=== PATIENT | male | born 1945 | race Caucasian/White ===

== ENCOUNTER → 2016-08-11 | Outpatient (CLI) | payer MEDICARE, OTHER ==
--- NOTE | 2016-08-11 08:23 | XR ---
EXAMINATION TYPE: XR orbit detect foreign body DATE OF EXAM: 08/11/2016 8:07 AM COMPARISON: NONE HISTORY: Foreign body right eye, pre-MRI study TECHNIQUE: Chung and Jt frontal view as well as true lateral view of both orbits is obtained. FINDINGS: No metallic intraorbital foreign body is seen to prevent MRI study. IMPRESSION: As above.
--- NOTE | 2016-08-11 09:05 | US ---
EXAMINATION TYPE: US carotid duplex BILAT DATE OF EXAM: 08/11/2016 8:41 AM COMPARISON: NONE CLINICAL HISTORY: H49.21 Palsy. Visual disturbance EXAM MEASUREMENTS: RIGHT: Peak Systolic Velocity (PSV) cm/sec ----- Right CCA: 65.2 ----- Right ICA: 72.2 ----- Right ECA: 87.0 ICA/CCA ratio: 1.1 RIGHT: End Diastole cm/sec ----- Right CCA: 17.2 ----- Right ICA: 19.3 ----- Right ECA: 13.1 LEFT: Peak Systolic Velocity (PSV) cm/sec ----- Left CCA: 92.7 ----- Left ICA: 64.9 ----- Left ECA: 81.0 ICA/CCA ratio: 0.7 LEFT: End Diastole cm/sec ----- Left CCA: 22.8 ----- Left ICA: 64.9 ----- Left ECA: 81.0 VERTEBRALS (direction of flow): Right Vertebral: Antegrade Left Vertebral: Antegrade TECHNOLOGIST IMPRESSION: Minimal plaque with no significant velocity elevations Grayscale images show no significant focal plaque at carotid bulb level bilaterally. Velocity measure ments and ratios in visualized portion of both internal carotid arteries is within normal limits. IMPRESSION: No hemodynamically significant stenosis in either internal carotid artery. Criteria for Assigning % of Stenosis / Diameter reduction (Estimation based on the indirect measurements of the internal carotid artery velocities (ICA PSV). 1. Normal (no stenosis)=ICA PSV < 125 cm/s: ratio < 2.0: ICA EDV<40 cm/s. 2. Less than 50% stenosis=ICA PSV < 125 cm/s: ratio < 2.0: ICA EDV<40 cm/s. 3. 50 to 69% stenosis=ICA PSV of 125 to 230 cm/s: ration 2.0 ? 4.0: ICA EDV 40-100 cm/s. 4. Greater than 70% stenosis to near occlusion= ICA PSV > 230 cm/s: ratio > 4.0: ICA EDV > 100 cm/s. 5. Near occlusion= ICA PSV velocities may be low or undetectable: variable ratio and ICA EDV. 6. Total occlusion=unable to detect flow.
--- NOTE | 2016-08-11 11:10 | MR ---
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 There is no hemorrhage or hydrocephalus. Cortical atrophy is presen t. Cerebellopontine angles, corpus callosum, pituitary, cervical medullary junction are normal. The o rbits show a symmetric appearance, globes appear symmetric. There are normal vascular flow voids. Sca ttered hyperintensities are present in the periventricular white matter on inversion recovery and T2- weighted sequences, approximately 20-30 lesions are present. IMPRESSION: Nonspecific white matter demyelination, cortical atrophy may be age-related.
--- NOTE | 2016-08-11 11:20 | MR ---
MR orbits with and without contrast HISTORY: Falls the right 6th cranial nerve Multiplanar multisequence and postcontrast images obtained through the orbits following 18 cc MultiHa nce IV Correlation to MR brain same date The extraocular muscles show a symmetric appearance. Globes are also symmetric and are showing asymme tric gaze. No abnormal enhancement, no evident mass. Internal carotid arteries are patent. Pituitary shows an unremarkable appearance. IMPRESSION: Normal pre and postcontrast orbits.
== END | disposition home or self-care (01) ==
LOC: RADUSMAIN 07:34
PROVIDERS: ATTEND Psychiatry & Neurology Neurology
DX: Z01.818 Encounter for other preprocedural examination (principal); H49.21 Sixth [abducent] nerve palsy, right eye; R90.82 White matter disease, unspecified
CPT/HCPCS: 70030; 93880; 70543; 70551; A9577

== ENCOUNTER → 2016-11-16 | Outpatient (CLI) | payer MEDICARE, OTHER ==
--- NOTE | 2016-11-16 12:25 | EST ---
DATE OF SERVICE: 11/16/2016 AGE: 71Y SEX: M HT: 70" WT: 195 lbs. Protocol Russell: X Other: Stress Stage: 3 Dur. of Exercise: 10:00 *Heart Rate Blood Pressure *Rest: 74 Rest: 116/65 * *Max. Achieved: 145 Maximum BP: 165/76 85% PMHR: 125 100% PMHR: 157 *METS: 11.7 INDICATIONS: Chest pain. MEDICATIONS: Aspirin, metformin, atorvastatin, Prevacid, Synthroid, Diovan, Protegra. Patient was exercised for a total period of 10 minutes. Peak heart rate of 145 was achieved. Maximum blood pressure 165/76 mmHg was noted. Exercised for a total period of 10 minutes. No complaint of any chest pain during the test. Resting EKG shows normal sinus rhythm with normal MN interval and QRS duration and normal ST-T waves. No ST segment depression suggestive of ischemia was noted. The patient did not complain of any anginal pain during the test. FINAL IMPRESSION: 1. This exercise test is not suggestive of ischemia. Patient's exercise tolerance is normal. 2. No dysrhythmias are noted.
== END | disposition home or self-care (01) ==
LOC: RADNMMAIN 09:19
PROVIDERS: ATTEND Family Medicine
DX: R07.9 Chest pain, unspecified (principal)
CPT/HCPCS: 93017

== ENCOUNTER 2017-07-02 22:55 | Emergency (ER) | payer MEDICARE, OTHER ==
[2017-07-02 23:08] VITALS: TEMP 97
[2017-07-02] MEDS ORDERED: ACETAMINOPHEN TAB 500 MG TAB PO STA (23:28)
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
--- NOTE | 2017-07-02 23:57 | CT ---
EXAM: CT Head Without Intravenous Contrast CLINICAL HISTORY: Reason: Pain TECHNIQUE: Axial computed tomography images of the head/brain without intravenous contrast. CTDI is 57 mGy and DLP is 978 mGy-cm. This CT exam was performed using one or more of the following dose reduction techniques: automated exposure control, adjustment of the mA and/or kV according to patient size, and/or use of iterative reconstruction technique. COMPARISON: No relevant prior studies available. FINDINGS: Brain: No hemorrhage, large hypodensity, or mass effect. Mild periventricular hypodensities likely reflective of chronic microvascular ischemic changes. Ventricles: No hydrocephalus. Bones/joints: Unremarkable. Soft tissues: Unremarkable. Sinuses: Unremarkable. Mastoid air cells: Clear. IMPRESSION: No acute hemorrhage, hydrocephalus, or mass effect.
[2017-07-03 00:28] VITALS: BP 136/71; PULSE 74; RESP 16
== END 2017-07-03 00:28 | disposition home or self-care (01) ==
LOC: EC 22:55
DX: S00.03XA Contusion of scalp, initial encounter (principal); E11.9 Type 2 diabetes mellitus without complications; I10 Essential (primary) hypertension; Z88.5 Allergy status to narcotic agent; Z91.040 Latex allergy status; Z91.048 Other nonmedicinal substance allergy status; Z79.84 Long term (current) use of oral hypoglycemic drugs; Z79.82 Long term (current) use of aspirin; Z79.899 Other long term (current) drug therapy; W22.8XXA Striking against or struck by other objects, initial encounter; Y92.59 Other trade areas as the place of occurrence of the external cause
CPT/HCPCS: 70450; 99283

== ENCOUNTER → 2018-06-22 | Outpatient (CLI) | payer MEDICARE, OTHER ==
--- NOTE | 2018-06-22 13:46 | MR ---
EXAMINATION TYPE: MR shoulder RT wo con DATE OF EXAM: 06/22/2018 11:43 AM COMPARISON: NONE HISTORY: Pain in right shoulder TECHNIQUE: Multiplanar multispin echo imaging of the right shoulder was performed. FINDINGS: Rotator cuff : There is thinning and heterogeneity of the supraspinatus tendon with the partial intra substance and undersurface tears noted at the critical zone and distally. No evidence for full-thickn ess tear at this time. The remaining constituents of the rotator cuff are intact. Bursa: No bursal effusion or thickening is seen. Musculature: There is no muscular tear, contusion, or atrophy. Acromioclavicular joint : Moderate AC joint arthropathy. Lateral downsloping of the acromion with sub acromial spurring resulting in impingement. Osseous structures : There are no fractures or regions of abnormal bone marrow signal intensity. Long biceps tendon : The biceps tendon is normally situated within the bicipital groove. No complete or partial biceps tendon tear is present. Glenohumeral Joint fluid : There is no glenohumeral joint effusion. Cartilage and Bone : No focal hyaline cartilage defects are noted. No Hill-Sachs, reverse Hill-Sachs, or bony Bankart lesions are seen. Labrum : There are no SLAP or soft tissue Bankart lesions. No paralabral cysts are seen. OTHER FINDINGS : none IMPRESSION: 1. Chronic tendinopathy supraspinatus tendon with the intrasubstance and undersurface partial tears. No evidence for full-thickness tear. 2. Lateral downsloping of the acromion with subacromial spurring resulting in moderate impingement.
== END | disposition home or self-care (01) ==
LOC: RADMRIMAIN 10:52
PROVIDERS: ATTEND Orthopaedic Surgery Sports Medicine
DX: M75.101 Unspecified rotator cuff tear or rupture of right shoulder, not specified as traumatic (principal); M67.813 Other specified disorders of tendon, right shoulder

== ENCOUNTER → 2021-06-30 | Outpatient (CLI) | payer MEDICARE, OTHER ==
[~2021-06-30] MED LIST: BAMLANIVIMAB (EUA) 700 MG, ETESEVIMAB (EUA) 1,400 MG in SODIUM CHLORIDE 0.9% 100 ML IVPB ONE; SODIUM CHLORIDE 0.9% 50 ML IVPB ONE; SODIUM CHLORIDE 0.9% 500 ML 500 ML in EMPTY BAG 1 BAG IV PRN
[2021-06-30 10:29] VITALS: RESP 18; TEMP 97.1
[2021-06-30 11:37] VITALS: BP 135/67; PULSE 86
== END ==
LOC: PROCWHC3 09:46
PROVIDERS: ATTEND Family Medicine
DX: U07.1 COVID-19 (principal); E11.9 Type 2 diabetes mellitus without complications; Z88.5 Allergy status to narcotic agent; Z91.040 Latex allergy status
CPT/HCPCS: 96360; J3490; M0245